=== PATIENT | female | born 1980 | race Caucasian/White ===

== ENCOUNTER 2018-03-09 07:38 | Emergency (ER) | payer OTHER, MEDICAID, SELFPAY ==
[2018-03-09 07:48] VITALS: BP 128/82; PULSE 117; RESP 20; TEMP 35.8; O2SAT 98; BMI 24.0
[2018-03-09 08:00] VITALS: PULSE 110
--- NOTE | 2018-03-09 08:10 | ED.EXTPRO ---
HPI - Extremity Problem General Chief complaint: Extremity Problem,Nontraumatic Stated complaint: CELLULITIS IN RIGHT ANKLE Time Seen by Provider: 03/09/18 07:45 Source: patient Mode of arrival: ambulatory Limitations: no limitations History of Present Illness HPI Narrative: 37-year-old female with a history of hepatitis C here for evaluation of possible cellulitis on her right lower extremity. Patient states that it has been becoming progressively more painful and red and swollen over the past couple days. She states she was at her primary care doctor's office yesterday for an unrelated issue and did not mention it to him because it was not as bad as it is today. States that last night it became worse and more painful. No fevers. Has had cellulitis in the past but it was on the left lower extremity. No other abscesses in the past requiring incision and drainage. Denies any fevers. Denies any trauma. Related Data Previous Rx's Medication Instructions Recorded clindamycin HCl 300 mg PO QID 10 Days #40 cap 03/09/18 Allergies Allergy/AdvReac Type Severity Reaction Status Date / Time epinephrine AdvReac Verified 03/09/18 07:53 Review of Systems Constitutional Denies fever(s) Cardiovascular Denies chest pain and Denies dyspnea Respiratory Denies dyspnea Gastrointestinal Gastrointestinal: Denies abdominal pain Musculoskeletal Reports myalgias (Right calf muscle pain) and Reports arthralgias (Right ankle pain) Integumentary/Breasts Comments: Redness and swelling to the outside of the right ankle Neurologic Comments: No numbness or tingling right lower extremity Hematologic/Lymphatic Denies easy bleeding and Denies easy bruising [facility] Medical History Hepatitis C (Acute) Surgical History No pertinent past surgical history (Acute) Social History Smoking Status: Current every day smoker Exam Initial Vital Signs Initial Vital Signs: Vital Signs Temperature 96.4 F L 03/09/18 07:48 Pulse Rate 117 H 03/09/18 07:48 Respiratory Rate 20 03/09/18 07:48 Blood Pressure 128/82 H 03/09/18 07:48 Pulse Oximetry 98 03/09/18 07:48 Const General: cooperative, healthy appearing, comfortable, well developed, well groomed and No acute distress Orientation: alert, awake and oriented x3 HENMT Head: normal to inspection and normocephalic Resp Effort & Inspection: normal respiratory effort Auscultation: clear to auscultation bilaterally Cardio Rate: tachycardic Rhythm: regular rhythm Skin Other: Patient with redness to the lateral malleolus just superior to the lateral malleolus of the right ankle. Swelling over the lateral malleolus. No vesicles, no pustules. No excoriation. No ulceration. Neuro Other: Sensation intact to light touch right lower extremity Extrem Other: Tenderness to palpation around the lateral malleolus of the right ankle. No Achilles tendon tenderness. No foot tenderness. Does have some tenderness to the calf muscle of the right lower extremity. I was able to passively flex and extend the ankle without discomfort. When the patient actively flex and extend her ankle she states the pain was over the outside of her ankle. Psych Appearance: grossly normal and well kempt Course Orders Ordered: ED Orders 03/09/18 08:45 Basic Metabolic Panel Stat C-Reactive Protein Quant Stat Complete Blood Count AUTO DIFF Stat Erythrocyte Sedimentation Rate Stat Discontinued Medications Sodium Chloride (Normal Saline 0.9%) 1,000 mls @ 1,000 mls/hr IV BOLUS ONE Stop: 03/09/18 09:02 Last Admin: 03/09/18 08:58 Dose: 1,000 mls/hr Clindamycin Phosphate (Cleocin) 600 mg in 50 mls @ 50 mls/hr IV NOW ONE Stop: 03/09/18 09:08 Last Admin: 03/09/18 08:58 Dose: 50 mls/hr Vital Signs - 8 hr 03/09/18 07:48 03/09/18 08:00 03/09/18 08:20 Temperature 96.4 F L 98.3 F Pulse Rate 117 H 107 H Pulse Rate [Right Dorsalis Pedis] 110 H Respiratory Rate 20 16 Blood Pressure 128/82 H Blood Pressure [Right Arm] 128/77 H Pulse Oximetry 98 100 03/09/18 09:45 Temperature Pulse Rate 88 Pulse Rate [Right Dorsalis Pedis] Respiratory Rate 22 Blood Pressure Blood Pressure [Right Arm] 122/64 H Pulse Oximetry 100 MDM - Extremity (Nontraumatic) Lab Data Attestation: I reviewed the patient's lab results. Result diagrams: 03/09/18 08:45 03/09/18 08:45 Lab Results 03/09/18 03/09/18 Range/Units 08:45 08:45 WBC 8.6 (4.5-11.0) X10^3/uL RBC 4.69 (4.0-5.2) X10^6/uL Hgb 13.1 (12.0-16.0) g/dL Hct 38.5 (36-46) % MCV 82.2 (80-100) fL MCH 27.9 (26-34) PG MCHC 34.0 (30-36) % RDW 13.6 (11.6-14.8) % Plt Count 262 (150-400) X10^3/uL Neut % (Auto) 60.0 (50-75) % Lymph % (Auto) 23.6 L (25-40) % [place] % (Auto) 13.5 (3-14) % Eos % (Auto) 2.6 (2-4) % Baso % (Auto) 0.3 (0-2) % Neut # (Auto) 5200 (1873-7816) /uL ESR 28 H (0-20) MM/HR Sodium 143 (137-145) mmol/L Potassium 3.7 (3.4-5.1) mmol/L Chloride 98 (98-107) mmol/L Carbon Dioxide 35 H (22-32) mmol/L BUN 12 (7-17) mg/dL Creatinine 0.50 L (0.52-1.04) mg/dL Estimated GFR > 60.0 (>60) mL/min BUN/Creatinine Ratio 24.0 H (6-22) Glucose 85 (70-100) mg/dL Calcium 9.3 (8.4-10.2) mg/dL C-Reactive Protein 3.3 H (<1.0) mg/dL MDM Narrative Medical decision making narrative: Patient does not have an elevated white blood cell count but does have elevated ESR and CRP. Have some concern about a septic joint however does not have pain in the joint with passive movement. Patient was given IV clindamycin and fluids here in the emergency department. Her heart rate did improve. I feel that given her physical exam today that cellulitis is more likely and septic joint is less likely. Will hold on consulting Orthopedics or performing a joint tap today. While the patient was here in the emergency department it was revealed that she is on Suboxone and has multiple track morris. I have a high suspicion that she may have injected herself near her ankle causing the symptoms today although she denies doing this. Her physical exam is not consistent with an abscess. The redness was outlined with a solid line in the swelling in her foot was outlined with a dotted line. Will send the patient home with a prescription for clindamycin. She was given return precautions. She expressed understanding and agreement with plan. Had to use ultrasound to start her IV secondary to her IV drug abuse. Patient received approximately half of the 600 mg of clindamycin at through the IV and then we lost the IV. Patient would not let us start another 1. She is not vomiting and I feel that she can continue her antibiotics by mouth. Discharge Plan Departure Patient Disposition: Home Clinical Impression: Cellulitis Instructions: DI for Cellulitis -- Adult Activity Restrictions/Additional Instructions: Take the antibiotics as directed. I highly suggest that you contact your primary care doctor for a follow-up. Return to the emergency department for any new symptoms, worsening symptoms, redness that extends outside the lines that were drawn today, worsening pain, or any other concerning symptoms. Prescriptions: New clindamycin HCl 300 mg capsule 300 mg PO QID 10 Days Qty: 40 RF: 0
[2018-03-09 08:20] VITALS: BP 128/77; PULSE 107; RESP 16; TEMP 36.8; O2SAT 100
[2018-03-09 08:58] LABS: Add Manual Diff / Slide Review NO; Basophils Percent Auto 0.3 % (0-2); Eosinophils Percent Auto 2.6 % (2-4); Hematocrit 38.5 % (36-46); Hemoglobin 13.1 g/dL (12.0-16.0); Lymphocytes Percent Auto 23.6 % (25-40); Mean Corpuscular Hemoglobin 27.9 PG (26-34); Mean Corpuscular Volume 82.2 fL (80-100); Monocytes Percent Auto 13.5 % (3-14); Neutrophils Absolute Auto 5200 /uL (3000-5900); Platelet Count 262 X10^3/uL (150-400); Red Blood Cell Count 4.69 X10^6/uL (4.0-5.2); Red Cell Distribution Width 13.6 % (11.6-14.8); White Blood Cell Count 8.6 X10^3/uL (4.5-11.0)
[2018-03-09] MEDS: SODIUM CHLORIDE 0.9% 1,000 ML 1000 ML IV (08:58)
[2018-03-09] MEDS: CLINDAMYCIN 600 MG/50 ML PIGGYBACK 50 MG IV (08:58)
[2018-03-09 09:10] LABS: Blood Urea Nitrogen 12 mg/dL (7-17); C-Reactive Protein Quant 3.3 mg/dL (<1.0); Calcium 9.3 mg/dL (8.4-10.2); Carbon Dioxide 35 mmol/L (22-32); Chloride 98 mmol/L (98-107); Estimated Glomerular Filt Rate > 60.0 mL/min (>60); Glucose 85 mg/dL (70-100); HEMOLYSIS 40 (0-50); Potassium 3.7 mmol/L (3.4-5.1); Sodium 143 mmol/L (137-145)
[2018-03-09 09:22] LABS: Erythrocyte Sedimentation Rate 28 MM/HR (0-20)
[2018-03-09 09:45] VITALS: BP 122/64; PULSE 88; RESP 22; O2SAT 100
--- NOTE | 2018-03-09 09:48 | PC.NURSE ---
multiple attempts secondary to scar tissue.
--- NOTE | 2018-03-09 10:09 | PC.NURSE ---
patients IV infiltrated. she refused another stick. Dr. Espinal ok with stopping antibiotics. no new orders at this time.
[2018-03-09 10:10] VITALS: BP 118/74; PULSE 88; RESP 15; O2SAT 100
== END 2018-03-09 10:11 | disposition home or self-care (01) ==
PROVIDERS: Emergency Provider Emergency Medicine; PCP Internal Medicine
DX: L03.115 Cellulitis of right lower limb (principal)
CPT/HCPCS: 36591; 80048; 85025; 85651; 86140; 96365; 99283; 99284